=== PATIENT | female | born 1975 | race Hispanic/Latino ===

== ENCOUNTER 2023-03-31 02:07 | Observation (INO) | payer BC, OTHER ==
[~2023-03-31] VITALS: Ht 167.6 cm; Wt 184.4 kg
[2023-03-31 03:43] VITALS: BP 150/102; PULSE 72; RESP 22
[2023-03-31 04:00] VITALS: O2SAT 97
[2023-03-31] MEDS ORDERED: CEFTRIAXONE 1G VIAL 1 GM in 0.9%NACL 50ML 50 ML IV SCH (04:00)
[2023-03-31] MEDS ORDERED: ONDANSETRON 4MG INJ IV PRN (04:00)
[2023-03-31] MEDS ORDERED: 0.9%NACL 1000ML 1,000 ML IV SCH (04:00)
[2023-03-31] MEDS ORDERED: ACETAMINOPHEN 325 MG TAB PO PRN ×2 (04:00)
[2023-03-31] MEDS ORDERED: CEFTRIAXONE 1G VIAL ONE (05:00)
[2023-03-31] MEDS: METRONIDAZOLE 500MG/100ML BAG 100 ML IV SCH ×2 (05:03→12:00)
[2023-03-31 05:34] LABS: BASOPHILS # (AUTO) 0.02 K/uL (0.00-0.20); BASOPHILS % (AUTO) 0.4 % (0.0-5.0); EOSINOPHILS # (AUTO) 0.09 K/uL (0.00-0.70); EOSINOPHILS % (AUTO) 1.6 % (0.0-8.0); HEMATOCRIT 33.5 % (36-48); IMMATURE GRANULOCYTE ABSOLUTE 0.02 K/uL (0-1); LYMPHOCYTES # (AUTO) 1.3 K/uL (1.0-4.8); LYMPHOCYTES % (AUTO) 23.5 % (21.0-51.0); MEAN CORPUSCULAR HEMOGLOBIN 26.8 pg (27.0-33.0); MEAN CORPUSCULAR HGB CONC 31.6 g/dL (32.0-36.0); MEAN CORPUSCULAR VOLUME 84.6 fL (79-99); MONOCYTES # (AUTO) 0.8 K/uL (0.1-1.0); MONOCYTES % (AUTO) 13.1 % (3.0-13.0); NEUTROPHILS # (AUTO) 3.5 K/uL (1.8-7.7); PLATELET COUNT (AUTO) 214 K/uL (130-400); RED BLOOD CELL COUNT(AUTO) 3.96 MIL/uL (4.00-5.50); RED CELL DISTRIBUTION WIDTH 15.9 % (11.0-15.5); WHITE BLOOD COUNT (AUTO) 5.7 K/uL (4.8-10.8)
[2023-03-31 05:46] LABS: ALBUMIN 2.7 g/dL (3.5-5.0); BILIRUBIN,TOTAL 0.3 mg/dL (0.2-1.0); CREATININE 0.7 mg/dL (0.5-1.5); POTASSIUM 3.6 mmol/L (3.5-5.1); TOTAL PROTEIN, SERUM 7.1 g/dL (6.0-8.3)
[2023-03-31 05:47] LABS: INR 0.94 (0.85-1.15); PROTHROMBIN TIME 10.9 SEC (9.6-11.6)
[2023-03-31 05:49] LABS: PARTIAL THROMBOPLASTIN TIME 29.7 SEC (26.3-35.5)
[2023-03-31] MEDS ORDERED: IOHEXOL-350 75 ML VIAL IV ONE (06:46)
[2023-03-31 07:25] VITALS: BP 118/69; PULSE 70; RESP 18
[2023-03-31 07:30] VITALS: BP 122/58; PULSE 78; RESP 18
[2023-03-31] MEDS ORDERED: LOSA50TA64 PO (08:09)
[2023-03-31] MEDS ORDERED: AMLO-258 PO (08:09)
[2023-03-31] MEDS ORDERED: METR-172 PO (08:15)
[2023-03-31] MEDS ORDERED: BISM262T15 PO (08:15)
[2023-03-31] MEDS ORDERED: OMEP20TA20 PO (08:15)
[2023-03-31] MEDS ORDERED: TETR-68 PO (08:15)
[2023-03-31 08:30] VITALS: O2SAT 97
[2023-03-31] MEDS ORDERED: PANTOPRAZOLE 40 MG/VIAL IVP SCH (09:00)
[2023-03-31 11:50] VITALS: BP 126/63; PULSE 68; RESP 18
[2023-04-01] MEDS ORDERED: CEFTRIAXONE 1G VIAL IVPB SCH (11:00)
== END 2023-03-31 16:30 | disposition home or self-care (01) ==
LOC: 2AH 03:16 → INTOOBSV 03:16
PROVIDERS: ADMIT Hospitalist; ATTEND Hospitalist
DX: R10.9 Unspecified abdominal pain (principal); R79.1 Abnormal coagulation profile; I10 Essential (primary) hypertension; E66.01 Morbid (severe) obesity due to excess calories; K76.0 Fatty (change of) liver, not elsewhere classified; R06.00 Dyspnea, unspecified; E86.0 Dehydration; K52.9 Noninfective gastroenteritis and colitis, unspecified; Z68.44 Body mass index [BMI] 60.0-69.9, adult; Z98.84 Bariatric surgery status
CPT/HCPCS: 96365; 96375; 96368; 83735; 80053; 85025; 85610; 85730; 82948; 36415; 71270; G0378 ×3; J0696; C9113; J3490; Q9967

== ENCOUNTER → 2024-12-02 | Outpatient (CLI) | payer BC ==
[~2024-12-02] MED LIST: AMLO-258 PO; ATOR10 PO; FAMO40TA7 PO; HYDR25TA PO; LOSA100T59 PO; METF-444 PO; OMEP40CA21 PO; TRAZ-187 PO
--- NOTE | 2024-12-02 15:28 | HMCIMG ---
UPPER GI TRACT, WO KUB REASON: Gastro-esophageal reflux disease with esophagitis; HEARTBURN COMPARISON: None TECHNIQUE: 7 short cine sequences are obtained documenting esophagram procedure. Prostate time was 0.8 minutes. FINDINGS: There is normal esophageal peristalsis. There is a moderate-sized hiatal hernia. Esophagus appears otherwise unremarkable. There is no evidence of mass, ulcer or obstructing lesion. There is no visible reflux during the exam. IMPRESSION: 1. Moderate hiatal hernia, otherwise negative.
== END | disposition home or self-care (01) ==
LOC: RAH 08:42
PROVIDERS: ATTEND Surgery
DX: K44.9 Diaphragmatic hernia without obstruction or gangrene (principal); K21.00 Gastro-esophageal reflux disease with esophagitis, without bleeding; R12 Heartburn
CPT/HCPCS: 74240